=== PATIENT | male | born 1975 | race Caucasian/White ===

== ENCOUNTER 2021-12-11 15:03 | Emergency (ER) | payer OTHER, MEDICAID ==
[~2021-12-11] VITALS: Ht 182.9 cm; Wt 106.6 kg
[2021-12-11 21:42] VITALS: BP 121/76
== END 2021-12-11 21:49 | disposition home or self-care (01) ==
LOC: EDBD 15:03 → ER 15:03
DX: M54.16 Radiculopathy, lumbar region (principal); M79.18 Myalgia, other site; I44.5 Left posterior fascicular block
CPT/HCPCS: 93005